=== PATIENT | male | born 1995 | race Caucasian/White ===

== ENCOUNTER 2022-12-03 17:21 | Emergency (ER) | payer SELFPAY ==
[~2022-12-03] VITALS: Ht 180.3 cm; Wt 81.6 kg
[2022-12-03 17:25] VITALS: BP_SYST 126
--- NOTE | 2022-12-03 17:30 | NUR ---
Patient triaged and placed in waiting room. VSS and patient appears in no acute distress at this time. Accompanied by FRIENDS, awaiting available bed, and MD notified of need for MSE.
--- NOTE | 2022-12-03 17:45 | NUR ---
PT STATES WHILE SKATEBOARDING AT [employer], INJURY TO RIGHT ANKLE, +SWELLING, +PAIN
--- NOTE | 2022-12-03 18:30 | NUR ---
Patient to ER bed 08 to gown for evaluation. Side rails up. RECEIVED REPORT FROM MITCH JUAREZ
[2022-12-03] MEDS ORDERED: HYDROcodone/ACETAMIN 10-325 MG TAB PO ONE (19:15)
[2022-12-03] MEDS ORDERED: IBUPROFEN 800 MG TABLET PO ONE (19:15)
--- NOTE | 2022-12-03 19:15 | NUR ---
REPORT RECEIVED FROM KP JUAREZ
--- NOTE | 2022-12-03 19:18 | NUR ---
REPORT GIVEN TO MYRA JUAREZ TO CONTINUE CARE OF PT
[2022-12-03] MEDS ORDERED: HYDR-3927 PO (19:19)
[2022-12-03] MEDS ORDERED: IBUP-1971 PO (19:21)
--- NOTE | 2022-12-03 19:30 | NUR ---
PT IN NAD, ICE ON RIGHT FOOT FAMILY AT BEDSIDE
--- NOTE | 2022-12-03 19:45 | NUR ---
SHORT LEG splint applied to RIGHT FOOT. 2+ pulse noted. Capillary refill <3 seconds. Patient has ability to move non-splinted digits. Has sensation present to affected site. Skin color within normal limits. Applied for pain management control.
--- NOTE | 2022-12-03 20:10 | NUR ---
PT STATED HE IS REFUSING CRUTCHES DUE TO HIM HAVING SOME ALREADY AT HOME. I OFFERED CRUTCHES TWICE AND PT WOULD LIKE TO USE THE ONES HE HAS AT HOME. PT WAS GIVEN CRUTCH INSTRUCTIOS AND WAS ASKED IF HE HAD ANY QUESTIONS. VERBAL TEACH BACK METHOD USED. ICE PACK OFFERED. AWAITING FURTHER ORDERS FROM
[2022-12-03 20:39] VITALS: BP_SYST 126
--- NOTE | 2022-12-03 20:40 | NUR ---
Patient given written and verbal discharge instructions and verbalizes understanding. ER MD DR MCELROY discussed with patient the results and treatment provided. Patient in stable condition. ID arm band removed. Rx of NORCO 10-325MG given. Patient educated on pain management CRUTCH USE and to follow up with PMD. Pain Scale 4. Opportunity for questions provided and answered. Medication side effect fact sheet provided.
== END 2022-12-03 20:40 | disposition home or self-care (01) ==
LOC: SED 17:21
DX: S82.854A Nondisplaced trimalleolar fracture of right lower leg, initial encounter for closed fracture (principal); Z79.899 Other long term (current) drug therapy; V00.141A Fall from scooter (nonmotorized), initial encounter; Y93.89 Activity, other specified; Y92.331 Roller skating rink as the place of occurrence of the external cause; Y99.8 Other external cause status
CPT/HCPCS: 99283